=== PATIENT | male | born 1980 | race Caucasian/White ===

== ENCOUNTER 2019-03-11 03:52 | Emergency (ER) | payer MEDICAID ==
[~2019-03-11] VITALS: Ht 175.3 cm; Wt 84.1 kg
[2019-03-11 03:55] VITALS: BP 108/53
[2019-03-11] MEDS ORDERED: ACETAMINOPHEN 500 MG TABLET PO ONE (04:30)
[2019-03-11] MEDS ORDERED: IBUPROFEN 600 MG TABLET PO ONE (04:30)
[2019-03-11] MEDS ORDERED: IBUPROFEN 600 MG TABLET ONE (04:38)
[2019-03-11] MEDS ORDERED: ACETAMINOPHEN 500 MG TABLET ONE (04:38)
== END 2019-03-11 05:08 | disposition home or self-care (01) ==
LOC: ED 05:02
DX: J11.1 Influenza due to unidentified influenza virus with other respiratory manifestations (principal); Z90.49 Acquired absence of other specified parts of digestive tract
CPT/HCPCS: 71046; 99283

== ENCOUNTER 2019-04-08 05:19 | Emergency (ER) | payer MEDICAID ==
[~2019-04-08] VITALS: Ht 175.3 cm; Wt 81.9 kg
[2019-04-08] MEDS ORDERED: KETOROLAC 30 MG/1 ML ONE (05:51)
[2019-04-08] MEDS ORDERED: KETOROLAC 30 MG/1 ML IVPush ONE (06:00)
[2019-04-08] MEDS ORDERED: AMPICILLIN/SULBACTAM 3 GM in SODIUM CHLORIDE 0.9% 100 ML IV ONE (06:00)
--- NOTE | 2019-04-08 06:05 | NUR ---
Pt refusing IV insert due to prior h/o IV drug use and difficulty obtaining IV access. ERP informed.
[2019-04-08] MEDS ORDERED: ACETAMINOPHEN 500 MG TABLET ONE (06:10)
[2019-04-08] MEDS ORDERED: CEPHALEXIN 500 MG CAPSULE ONE (06:11)
[2019-04-08] MEDS ORDERED: SULFAMETH./TRIMETHOPRIM DS 800MG/160MG TABLET ONE (06:11)
--- NOTE | 2019-04-08 06:22 | NUR ---
pt resting on [facility], medicated per apr, monitors in place, siderail [id number], call light within reach. awaiting xra and lab results
[2019-04-08 06:24] LABS: BASOPHILS # (AUTO) 0.05 x10^3/uL (0-0.1); BASOPHILS % (AUTO) 1 % (0-1); EOSINOPHILS # (AUTO) 0.08 x10^3/uL (0-0.4); EOSINOPHILS % (AUTO) 1 % (1-7); LYMPHOCYTES # (AUTO) 1.77 x10^3/uL (1-3.4); LYMPHOCYTES % (AUTO) 21 % (22-44); MD NO; MEAN CORPUSCULAR HEMOGLOBIN 31.5 pg (27.5-34.5); MEAN CORPUSCULAR HGB CONC 34.5 g/dL (33.2-36.2); MEAN CORPUSCULAR VOLUME 91.4 fL (81-97); MEAN PLATELET VOLUME 8.1 fL (7.4-10.4); MONOCYTES # (AUTO) 0.76 x10^3/uL (0.2-0.8); MONOCYTES % (AUTO) 9 % (2-9); NEUTROPHILS % (AUTO) 68 % (42-75); PLATELET COUNT 187 x10^3/uL (130-400); RED BLOOD COUNT 5.09 x10^6/uL (4.38-5.82); RED CELL DISTRIBUTION WIDTH 13.1 % (9.4-14.8)
[2019-04-08] MEDS ORDERED: SULFAMETH./TRIMETHOPRIM DS 800MG/160MG TABLET PO ONE (06:30)
[2019-04-08] MEDS ORDERED: CEPHALEXIN 500 MG CAPSULE PO ONE (06:30)
[2019-04-08] MEDS ORDERED: ACETAMINOPHEN 500 MG TABLET PO ONE (06:30)
[2019-04-08 06:34] LABS: ANION GAP 4 mmol/L (5-15); CALCIUM 8.7 mg/dL (8.5-10.1); CHLORIDE 107 mmol/L (98-107); CREATININE 0.88 mg/dL (0.7-1.3)
--- NOTE | 2019-04-08 06:51 | NUR ---
Report givent to Olga RUVALCABA.
--- NOTE | 2019-04-08 06:54 | NUR ---
FIRST CONTACT. JORDON CORTES IS DISCHARGING THE PT. FOR THE PRIMARY CARE RN. PT. IS A & O X 4 WITH A GCS OF 15. PT.'S RIGHT HAND REMAINS RED AND HOT. CMS CHECKS ARE INTACT WITH PULSES +2 THROUGHOUT. PT. WAS GIVEN DISCHARGE INSTRUCTIONS AND SCRIPTS WITH UNDERSTANDING VERBALIZED ALONG WITH WILLINGNESS TO COMPLY. PT. WAS AMBULATORY TO THE DISCHARGE DESK VSS.
[2019-04-08 06:56] VITALS: BP 141/76
== END 2019-04-08 06:59 | disposition home or self-care (01) ==
LOC: ED 06:53
DX: L03.113 Cellulitis of right upper limb (principal); F17.210 Nicotine dependence, cigarettes, uncomplicated
CPT/HCPCS: 36415; 80048; 85025; 99284

== ENCOUNTER 2019-06-04 14:17 | Emergency (ER) | payer MEDICAID ==
[~2019-06-04] VITALS: Ht 175.3 cm; Wt 80.8 kg
[2019-06-04 14:22] VITALS: BP 115/65
[2019-06-04] MEDS ORDERED: DIAZEPAM 5 MG TABLET ONE (14:52)
[2019-06-04] MEDS ORDERED: KETOROLAC 30 MG/1 ML ONE (14:52)
[2019-06-04] MEDS ORDERED: DIAZEPAM 5 MG TABLET PO ONE (15:00)
[2019-06-04] MEDS ORDERED: KETOROLAC 30 MG/1 ML IM ONE (15:00)
== END 2019-06-04 17:58 ==
LOC: ED 14:40
DX: S16.1XXA Strain of muscle, fascia and tendon at neck level, initial encounter (principal); F17.200 Nicotine dependence, unspecified, uncomplicated; Z90.49 Acquired absence of other specified parts of digestive tract; X50.0XXA Overexertion from strenuous movement or load, initial encounter; Y93.89 Activity, other specified; Y92.89 Other specified places as the place of occurrence of the external cause; Y99.0 Civilian activity done for income or pay
CPT/HCPCS: 72125; 96372; 99284; J1885

== ENCOUNTER 2019-09-27 01:56 | Emergency (ER) | payer MEDICAID ==
[~2019-09-27] VITALS: Ht 175.3 cm; Wt 83.1 kg
[2019-09-27 02:39] VITALS: BP 122/68
== END 2019-09-27 02:41 | disposition home or self-care (01) ==
LOC: ED 02:35
DX: L03.116 Cellulitis of left lower limb (principal); F17.200 Nicotine dependence, unspecified, uncomplicated; Z90.49 Acquired absence of other specified parts of digestive tract
CPT/HCPCS: 99283

== ENCOUNTER 2020-03-13 16:15 | Emergency (ER) | payer MEDICAID ==
[~2020-03-13] VITALS: Ht 175.3 cm; Wt 81.3 kg
[2020-03-13 18:14] LABS: BASOPHILS % (AUTO) 1 % (0-1); EOSINOPHILS % (AUTO) 2 % (1-7); LYMPHOCYTES % (AUTO) 23 % (22-44); MEAN CORPUSCULAR HEMOGLOBIN 30.9 pg (27.5-34.5); MEAN CORPUSCULAR HGB CONC 34.9 g/dL (33.2-36.2); MONOCYTES % (AUTO) 12 % (2-9); NEUTROPHILS % (AUTO) 63 % (42-75); PLATELET COUNT 202 x10^3/uL (130-400); RED BLOOD COUNT 5.17 x10^6/uL (4.38-5.82); RED CELL DISTRIBUTION WIDTH 12.6 % (9.4-14.8)
[2020-03-13 18:20] LABS: MD NO
[2020-03-13 18:21] LABS: CALCIUM 9.1 mg/dL (8.5-10.1); CHLORIDE 110 mmol/L (98-107); CREATININE 0.98 mg/dL (0.7-1.3)
[2020-03-13 18:22] LABS: ALBUMIN 3.5 g/dL (3.4-5.0)
[2020-03-13 18:35] LABS: ANION GAP 8 mmol/L (5-15)
[2020-03-13] MEDS ORDERED: CEFTRIAXONE 1,000 MG IM ONE (19:00)
[2020-03-13] MEDS ORDERED: CEFTRIAXONE 1,000 MG ONE (19:02)
[2020-03-13 19:08] VITALS: BP 124/77
== END 2020-03-13 19:23 | disposition home or self-care (01) ==
LOC: ED 18:20
DX: L03.115 Cellulitis of right lower limb (principal)
CPT/HCPCS: 36415; 73630; 80048; 82040; 85025; 96372; 99284; J0696